=== PATIENT | female | born 1970 | race Caucasian/White ===

== ENCOUNTER 2016-04-24 07:52 | Day surgery (SDC) | payer OTHER ==
[2016-04-24] VITALS (11 sets, daily range): BP systolic 94–121; BP diastolic 55–70; PULSE 69–87; TEMP 36.5–37; O2SAT 96–100; Ht 170.2 cm; Wt 72.0 kg
[~2016-04-24] VITALS: Ht 170.2 cm; Wt 72.0 kg
[~2016-04-24 07:52] MED LIST: CYCL10TA6 PO; CYTM5 PO; LEVO1TAB PO; LEVO75TA PO; LISI-787 PO; NASONEX NAE
--- NOTE | 2016-04-24 11:06 | Discharge Instructions ---
Discharge Instructions Procedure Procedure Date: Apr 24, 2016. Reason for visit: Possible Ms, Optic Neuritis W/Open Pressure. Discharge Discharge Date: Apr 24, 2016. Discharge Diagnosis: s/p lumbar puncture Instructions Activity Recommendations: 1 Day-May resume regular activity, 48 Hours of decreased exertion Return to School/Work: limitations Recommended Home Diet: No Limitations Provider Instructions: ACTIVITY RECOMMENDATIONS: * Rest today. * Resume regular activity in one day. MEDICATIONS: * May take Tylenol or Ibuprofen as needed for pain. DIET: * Resume previous diet. SPECIAL CARE INSTRUCTIONS: Call your doctor if: * Temperature above 101 degrees F. * Pain not relieved by pain medicine ordered. * Increased drainage or redness from incision. * Notify your doctor with any questions or concerns. Call your doctor or go to the nearest Emergency Department if you experience: * Increased chest pain or shortness of breath. FOLLOW UP VISIT: Follow-up with Referring Physician as scheduled. Allergies Coded Allergies: Macrolides (Verified Allergy, Unknown, 04/24/16) Mary Duran Recommendations: Call your doctor if: * Temperature above 101 degrees * Pain not relieved by pain medicine ordered * There is increased drainage or redness from any incision * You have any unanswered questions or concerns. Your Doctors Instructions noted above were prepared by provider Vikram Buenrostro. Patient Signature Section: Patient Instructions Signature Page Sary Asencio Patient (or Guardian) Signature/Date: I have read and understand the instructions given to me by my caregivers. Caregiver/RN/Doctor Signature/Date: The above-named patient and/or guardian has received patient instructions on this date. + Original Patient Signature Page (only) stays with chart. Please make copy for patient.
--- NOTE | 2016-04-24 11:10 | DIAGNOSTIC IMAGING REPORT ---
FLUOROSCOPICALLY GUIDED LUMBAR PUNCTURE CLINICAL HISTORY: Possible multiple sclerosis. PROCEDURE: The procedure, risks and benefits were discussed with the patient including the risk of spinal headache, bleeding and infection. The patient agreed to the procedure and informed written consent was obtained. The procedure was performed by Dr. Buenrostro following a timeout. The right right L4-L5 interlaminar space was targeted. Skin overlying the space was prepped and draped in sterile fashion and local anesthesia was achieved with 1% lidocaine. Under intermittent fluoroscopic guidance, a 5 inch, 22-gauge spinal needle was directed into the thecal sac. There was immediate return of clear cerebrospinal fluid. Initially, the fluid was slightly blood-tinged but quickly cleared. Opening pressure was 20.5 cm of water. 8 cc of CSF was collected in 4 vials and sent to laboratory as ordered. The needle was removed. The patient tolerated the procedure well and no immediate complications were evident. IMPRESSION: 1. Fluoroscopically guided lumbar puncture with collection of 8 cc of cerebrospinal fluid. Initially, the fluid was slightly blood-tinged but quickly cleared. 2. Open pressure of 20.5 cm of water, at the upper limits of normal. Electronically signed by: Vikram Buenrostro M.D. 04/24/2016 11:08 AM Dictated Date/Time: 04/24/2016 11:02 AM
[2016-04-24 11:36] LABS: CSF APPEARANCE CLEAR; CSF COLOR COLORLESS; CSF XANTHOCHROMIC NO XANTHOCHROMIA
[2016-04-24 11:38] LABS: CSF TOTAL PROTEIN 30.3 mg/dl (15.0-45.0)
[2016-04-24 11:57] LABS: BASO % 0.2 %; BASO ABS # 0.01 K/uL (0-0.2); EOS % 0.3 %; IG% 0.2 %; LYMPH % 12.1 %; LYMPH ABS # 0.71 K/uL (1.2-3.4); MEAN CELL VOLUME 85.7 fL (80-100); MEAN CORPUSCULAR HEMOGLOBIN 30.5 pg (25-34); MEAN PLATELET VOLUME 9.2 fL (7.4-10.4); NEUT % 86.2 %; PLATELET COUNT 275 K/uL (130-400); RED BLOOD COUNT 4.55 M/uL (4.2-5.4); WHITE BLOOD COUNT 5.85 K/uL (4.8-10.8)
[2016-04-24 12:08] LABS: COMPLETE YES; MEAN CORPUSCULAR HGB CONC 35.6 g/dl (32-36)
[2016-04-24 12:18] LABS: BUN/CREATININE RATIO 20.4 (10-20); CALCIUM 8.8 mg/dl (8.5-10.1); CREATININE 0.87 mg/dl (0.60-1.20); POTASSIUM 3.5 mmol/L (3.5-5.1)
[2016-04-24 12:30] LABS: THYROID STIMULATING HORMONE 0.398 uIu/ml (0.300-4.500)
[2016-04-24 12:55] LABS: LYME DISEASE AB IGG NEG (NEG); LYME DISEASE AB IGM NEG (NEG)
[2016-05-01 08:25] LABS: ALBUMIN 4.2 g/dL (3.5-4.9); IGG CSF 1.9 mg/dL (0.8-7.7); IGG SERUM 1310 mg/dL (694-1618); LYME DNA PCR CSF OR SYNOVIAL Not detected (Not Detected); LYME DNA SOURCE CSF; LYME IGG CSF NO BANDS DETECTED; LYME IGM CSF NO BANDS DETECTED; MYELIN BASIC PROTEIN 663 <2.0 mcg/L (0.0-4.0)
== END 2016-04-24 15:15 | disposition home or self-care (01) ==
LOC: C.ACU 07:52
PROVIDERS: ATTEND Psychiatry & Neurology Neurology
DX: H46.9 Unspecified optic neuritis (principal)

== ENCOUNTER → 2016-07-19 | Outpatient (CLI) | payer OTHER ==
[~2016-07-19] MED LIST changes: -LEVO1TAB PO
--- NOTE | 2016-07-20 07:55 | MAMMOGRAPHY REPORT ---
BILATERAL DIGITAL SCREENING MAMMOGRAM TOMOSYNTHESIS WITH CAD: 07/19/2016 CLINICAL HISTORY: Routine screening examination. TECHNIQUE: Breast tomosynthesis in addition to standard 2D mammography was performed. Current study was also evaluated with a Computer Aided Detection (CAD) system. COMPARISON: Comparison is made to exams dated: 07/07/2015 mammogram, 07/15/2014 ultrasound, 07/15/2014 m ammogram, 07/01/2014 mammogram, 05/06/2013 mammogram, and 04/23/2012 mammogram - [facility] enter. BREAST COMPOSITION: The tissue of both breasts is heterogeneously dense, which may obscure small ma sses. FINDINGS: There are stable benign-appearing punctate microcalcifications bilaterally, and coarse leatha cifications in the inferior left breast. No suspicious spiculated or irregular mass, architectural distortion or cluster of microcalcifications is seen. IMPRESSION: ACR BI-RADS CATEGORY 1: NEGATIVE There is no mammographic evidence of malignancy. A 1 year screening mammogram is recommended. The p atient will receive written notification of the results. Approximately 10% of breast cancers are not detected with mammography. A negative mammographic repor t should not delay biopsy if a clinically suggestive mass is present. Natasha Dumont M.D. ay/:07/19/2016 17:19:54 Medical Clinic Manager: Debbie BRAND(Shania)(Jason), [facility] letter sent: Normal 1/2 BI-RADS Code: ACR BI-RADS Category 1: Negative
== END | disposition home or self-care (01) ==
LOC: C.MAMM 17:00
PROVIDERS: ATTEND Family Medicine
DX: Z12.31 Encounter for screening mammogram for malignant neoplasm of breast (principal)

== ENCOUNTER → 2016-09-21 | Outpatient (CLI) | payer OTHER | END | disposition home or self-care (01) | LOC: C.LAB 07:17 | PROVIDERS: ATTEND Family Medicine | DX: R53.83 Other fatigue (principal) ==

== ENCOUNTER → 2017-07-25 | Outpatient (CLI) | payer OTHER ==
--- NOTE | 2017-07-26 07:58 | MAMMOGRAPHY REPORT ---
BILATERAL DIGITAL SCREENING MAMMOGRAM TOMOSYNTHESIS WITH CAD: 07/25/2017 CLINICAL HISTORY: Routine screening. Patient has no complaints. TECHNIQUE: Breast tomosynthesis in addition to standard 2D mammography was performed. Current study was also evaluated with a Computer Aided Detection (CAD) system. COMPARISON: Comparison is made to exams dated: 07/19/2016 mammogram, 07/07/2015 mammogram, 07/15/2014 ult rasound, 07/15/2014 mammogram, 07/01/2014 mammogram, and 05/06/2013 mammogram - [facility]. BREAST COMPOSITION: The tissue of both breasts is heterogeneously dense, which may obscure small mas ses. FINDINGS: The parenchymal pattern is unchanged. There are scattered bilateral round and punctate mi crocalcifications, stable comparing to prior mammograms. No developing mass, architectural distortio n or cluster of suspicious microcalcifications is seen in either breast. IMPRESSION: ACR BI-RADS CATEGORY 2: BENIGN There is no mammographic evidence of malignancy. A 1 year screening mammogram is recommended. The pa tient will receive written notification of the results. Approximately 10% of breast cancers are not detected with mammography. A negative mammographic report should not delay biopsy if a clinically suggestive mass is present. Natasha Dumont M.D. ay/:07/25/2017 17:04:43 Photograph Mounter: Samantha BRAND(Shania)(M), [facility] letter sent: Normal 1/2 BI-RADS Code: ACR BI-RADS Category 2: Benign
== END | disposition home or self-care (01) ==
LOC: C.MAMM 16:42
PROVIDERS: ATTEND Family Medicine
DX: Z12.31 Encounter for screening mammogram for malignant neoplasm of breast (principal)